=== PATIENT | female | born 1970 | race Caucasian/White ===

== ENCOUNTER 2016-10-23 09:20 | Emergency (ER) | payer SELFPAY ==
[~2016-10-23] VITALS: Ht 162.6 cm; Wt 111.0 kg
[2016-10-23] MEDS ORDERED: DEXAMETHASONE 10 MG/ML VIAL IM ONE (11:15)
[2016-10-23] MEDS ORDERED: KETOROLAC 60MG/2ML VIAL IM ONE (11:15)
[2016-10-23 11:40] LABS: HCG SCREEN NEGATIVE
[2016-10-23 12:16] VITALS: BP 125/78
== END 2016-10-23 12:18 | disposition home or self-care (01) ==
LOC: ER 10:37
DX: J02.9 Acute pharyngitis, unspecified (principal); F17.200 Nicotine dependence, unspecified, uncomplicated; Z88.0 Allergy status to penicillin
CPT/HCPCS: 84703; 87070; 87430; 96372; 99284; J1100; J1885; Z7610